=== PATIENT | female | born 1980 | race Caucasian/White ===

== ENCOUNTER 2022-04-12 17:32 | Emergency (ER) | payer OTHER, SELFPAY ==
[2022-04-12 17:55] VITALS: BP 155/98; PULSE 89; RESP 16; TEMP 36.9; O2SAT 98; BMI 32.8
[2022-04-12 18:24] VITALS: BP 155/98; PULSE 89; RESP 16; TEMP 36.9; O2SAT 98; BMI 32.8
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
[2022-04-12 20:14] VITALS: BP 155/98; PULSE 89; RESP 16; TEMP 36.9
== END 2022-04-12 20:15 | disposition home or self-care (01) ==
PROVIDERS: Emergency Provider Nurse Practitioner Family; PCP Surgery
DX: M25.562 Pain in left knee (principal); M79.605 Pain in left leg; V89.2XXA Person injured in unspecified motor-vehicle accident, traffic, initial encounter; Z88.6 Allergy status to analgesic agent; Z91.013 Allergy to seafood; Z91.018 Allergy to other foods
CPT/HCPCS: 73562; 73590; 73610; 99212; 99213; G0463